=== PATIENT | female | born 1975 | race Two or more races ===

== ENCOUNTER 2016-10-13 11:10 | Emergency (ER) | payer SELFPAY ==
[~2016-10-13] VITALS: Ht 152.4 cm; Wt 62.0 kg
[~2016-10-13 11:10] MED LIST: ACET500C5 PO; COUGH MED; DOCU-144 PO; FAMO-18 PO; [UNRECOGNIZED DRUG - REMARK]
[2016-10-13 11:12] VITALS: Ht 152.4 cm; Wt 62.0 kg
== END 2016-10-13 12:30 | disposition left against medical advice (07) ==
LOC: FTE 11:10
DX: Z53.21 Procedure and treatment not carried out due to patient leaving prior to being seen by health care provider (principal)

== ENCOUNTER 2018-02-06 17:13 | Emergency (ER) | END 2018-02-06 21:35 | disposition home or self-care (01) ==

== ENCOUNTER 2018-09-09 16:57 | Emergency (ER) | payer SELFPAY ==
[~2018-09-09] VITALS: Ht 167.6 cm; Wt 61.2 kg
[~2018-09-09 16:57] MED LIST changes: +ELEC100080 PO; -FAMO-18 PO; +FAMO-96 PO; +METO10TA92 PO; +NAPR-985 PO; +NITR-58 PO
[2018-09-09 17:01] VITALS: BP 133/86; PULSE 113; RESP 20; Ht 167.6 cm; Wt 61.2 kg
== END 2018-09-09 19:19 | disposition left against medical advice (07) ==
LOC: E/R 16:57
DX: Z53.21 Procedure and treatment not carried out due to patient leaving prior to being seen by health care provider (principal)

== ENCOUNTER 2018-12-03 05:57 | Emergency (ER) | payer OTHER ==
[~2018-12-03] VITALS: Ht 154.9 cm; Wt 62.7 kg
[~2018-12-03 05:57] MED LIST changes: +CIPR-193 PO; +ONDA4TAB8 PO; +PHEN-537 PO
[2018-12-03 06:00] VITALS: Ht 154.9 cm; Wt 62.7 kg
[2018-12-03] MEDS ORDERED: ONDANSETRON 4 MG INJ IV STA (06:19)
--- NOTE | 2018-12-03 06:26 | ERD ---
ER Documentation Chief Complaint Chief Complaint DYSURIA; RECENTLY DX'D UTI, ON ATBs X3DAYS; DIZZY DUE TO VOMITING X1DAY HPI Patient is a 43 years old female with no known past medical history presenting to the clinic for chills, emesis, body aches since today morning. Patient reports of being diagnosed with UTI on Thursday by her PCP and was given Macrobid. Patient reports her symptoms worsen as of today morning came to the ED seeking help. Patient admits to 3 episodes of NBNB emesis admits to nausea. Patient reports he still is experiencing urinary urgency, dysuria, suprapubic pain, and low back pain. She admits to taking Macrobid as instructed by her PCP. ROS All systems reviewed and are negative except as per history of present illness. Medications Home Meds Active Scripts Ondansetron Hcl* (Zofran*) 4 Mg Tablet, 4 MG PO Q8H PRN for NAUSEA AND/OR VOMITING, #30 TAB Prov:HARSHIL KYLE PA-C 12/03/18 Phenazopyridine Hcl* (Pyridium*) 100 Mg Tab, 100 MG PO TID PRN for URINARY PAIN, #8 TAB Prov:HARSHIL KYLE PA-C 12/03/18 Ciprofloxacin Hcl* (Ciprofloxacin Hcl*) 250 Mg Tablet, 250 MG PO BID for 5 Days, #10 TAB Prov:HARSHIL KYLE PA-C 12/03/18 Metoclopramide* (Reglan*) 10 Mg Tablet, 10 MG PO Q6 PRN for NAUSEA AND/OR VOMITING, #12 TAB Prov:RAJINDER ANDRADE PA-C 02/06/18 Electrolyte,Oral (Pedialyte) 1,000 Ml Solution, 100 ML PO Q6 PRN for VOMITTING, #1000 ML Prov:RAJINDER ANDRADE PA-C 02/06/18 Naproxen* (Naprosyn*) 500 Mg Tablet, 500 MG PO BID PRN for PAIN AND/OR INFLAMMATION, #30 TAB Prov:RAJINDER ANDRADE PA-C 02/06/18 Nitrofurantoin Monohyd Macrocr* (Macrobid*) 100 Mg Capsr, 100 MG PO BID for 7 Days, CAP Prov:RAJINDER ANDRADE PA-C 02/06/18 Acetaminophen* (Tylophen*) 500 Mg Capsule, 1 CAP PO Q6H PRN for PAIN AND OR ELEVATED TEMP, #20 CAP Prov:RAMYA GARCIA MD 03/15/16 Docusate Sodium* (Colace*) 100 Mg Capsule, 100 MG PO BID, #30 CAP Prov:RAMYA GARCIA MD 03/15/16 Famotidine* (Pepcid*) 20 Mg Tablet, 20 MG PO BID for 14 Days, #30 TAB Prov:RAMYA GARCIA MD 03/15/16 Reported Medications [Cough Med] No Conflict Check 06/03/11 [unk GI med] No Conflict Check 07/09/10 Allergies Allergies: Coded Allergies: Egg (Verified Allergy, Mild, 06/12/12) Chicken Derived (Verified Allergy, 06/12/12) PMhx/Soc History of Surgery: Yes (csection,gallblader,r breast tumor) Anesthesia Reaction: No Hx Neurological Disorder: Yes (migraine) Hx Respiratory Disorders: No Hx Cardiac Disorders: No Hx Psychiatric Problems: No Hx Miscellaneous Medical Probl: No Hx Alcohol Use: No Hx Substance Use: No Hx Tobacco Use: No Smoking Status: Never smoker FmHx Father had diabetes and was from cancer recently. Mother has history of kidney disease. Physical Exam Vitals Vital Signs Date Temp Pulse Resp B/P (MAP) Pulse Ox O2 O2 Flow FiO2 Time Delivery Rate 12/03/18 98.4 113 20 112/84 100 06:00 (93) Physical Exam Const: No acute distress. Patient sitting on exam bed with emesis basin around her arm without emesis. Head: Atraumatic Resp: Clear to auscultation bilaterally Cardio: Regular rate and rhythm, no murmurs Abd: Soft, non tender, non distended. Normal bowel sounds Skin: No petechiae or rashes Back: No midline or flank tenderness. Negative CVAT. Ext: No cyanosis, or edema Psych: Normal Mood and Affect Result Diagram: 12/03/18 0629 12/03/18 0629 Results 24 hrs Laboratory Tests Test 12/03/18 06:29 12/03/18 06:37 White Blood Count 6.5 10^3/ul Red Blood Count 4.82 10^6/ul Hemoglobin 12.3 g/dl Hematocrit 39.5 % Mean Corpuscular Volume 82.0 fl Mean Corpuscular Hemoglobin 25.5 pg Mean Corpuscular Hemoglobin Concent 31.1 g/dl Red Cell Distribution Width 15.4 % Platelet Count 147 10^3/UL Mean Platelet Volume 12.6 fl Immature Granulocytes % 0.500 % Neutrophils % 48.7 % Lymphocytes % 34.4 % Monocytes % 8.3 % Eosinophils % 7.8 % Basophils % 0.3 % Nucleated Red Blood Cells % 0.0 /100WBC Immature Granulocytes # 0.030 10^3/ul Neutrophils # 3.2 10^3/ul Lymphocytes # 2.2 10^3/ul Monocytes # 0.5 10^3/ul Eosinophils # 0.5 10^3/ul Basophils # 0.0 10^3/ul Nucleated Red Blood Cells # 0.0 10^3/ul Sodium Level 142 mmol/L Potassium Level 3.5 mmol/L Chloride Level 108 mmol/L Carbon Dioxide Level 27 mmol/L Anion Gap 7 Blood Urea Nitrogen 10 mg/dl Creatinine 0.63 mg/dl Est Glomerular Filtrat Rate mL/min > 60 mL/min Glucose Level 106 mg/dl Calcium Level 9.2 mg/dl Total Bilirubin 0.2 mg/dl Direct Bilirubin 0.00 mg/dl Indirect Bilirubin 0.2 mg/dl Aspartate Amino Transf (AST/SGOT) 23 IU/L Alanine Aminotransferase (ALT/SGPT) 21 IU/L Alkaline Phosphatase 80 IU/L Total Protein 7.1 g/dl Albumin 4.0 g/dl Globulin 3.10 g/dl Albumin/Globulin Ratio 1.29 POC Beta HCG, Qualitative NEGATIVE Current Medications Medications Dose Sig/Alana Start Time Status Last (Trade) Ordered Route PRN Stop Time Admin Dose Reason Admin Sodium 500 ml @ Q1H ONCE 12/03/18 DC 12/03/18 Chloride 500 mls/hr IV 06:30 06:34 12/03/18 07:29 Ondansetron 4 mg ONCE STAT 12/03/18 DC 12/03/18 HCl (Zofran IV 06:19 06:35 Inj) 12/03/18 06:23 200 mg ONCE ONCE 12/03/18 DC 12/03/18 Phenazopyridi PO 06:30 06:47 ne HCl 12/03/18 06:31 (Pyridium) 50 mg STK-MED 12/03/18 DC Diphenhydrami ONCE .ROUTE 06:28 ne HCl 12/03/18 06:29 (Benadryl) Ceftriaxone 50 ml @ ONCE ONCE 12/03/18 DC 12/03/18 Sodium 100 mls/hr IVPB 07:00 06:47 12/03/18 07:29 Procedures/MDM Patient was seen and evaluated for emesis, body aches, chills. CBC, CMP are grossly unremarkable. Urine is negative. Patient was started on 500 mL normal saline IV, Zofran 4 mg IV, Pyridium 200 mg p.o. in ED significant improvement in symptoms. I have low suspicion for sepsis, nephrolithiasis, need for high doses, pyelonephritis, appendicitis, cholecystitis, colitis. Re- evaluation of patient post treatment is unremarkable. Patient stable and ready for discharge. Patient is most likely exhibiting side effects of Macrobid without complications. Patient will be discharged with Cipro 250 mg p.o. twice daily X 5 days, Pyridium, and Zofran. Follow-up with PCP. Patient was advised to DC Macrobid. Patient will be notified for urine c ulture results. Departure Diagnosis: Primary Impression: UTI (urinary tract infection) Urinary tract infection type: site unspecified Hematuria presence: without hematuria Qualified Codes: N39.0 - Urinary tract infection, site not specified Condition: Stable Patient Instructions: Understanding Urinary Tract Infections (UTIs) Referrals: [facility] Additional Instructions: Patient advised to return to the ED immediately for new or worsening symptoms. Patient advised to follow up with primary care provider in the next 24-48 hours. Patient verbalized understanding and agrees with treatment plan and course of action. If patient has no primary care they may follow up with [facility] [address] [place] [id number] or [facility] [address] [place] [address] or [facility] [address] [place] [address] HARSHIL KYLE PA-C Dec 03, 2018 06:26
[2018-12-03] MEDS ORDERED: DIPHENHYDRAMINE 50 MG INJ ONE (06:28)
[2018-12-03] MEDS ORDERED: PHENAZOPYRIDINE 100 MG TAB PO ONE (06:30)
[2018-12-03] MEDS ORDERED: SOD CHLORIDE 0.9% 500 ML IV ONE (06:30)
[2018-12-03] MEDS ORDERED: CEFTRIAXONE 1 GM/50 ML (PMX) 50 ML IVPB ONE (07:00)
[2018-12-03 08:22] VITALS: BP 116/66; PULSE 82; RESP 19
== END 2018-12-03 08:23 | disposition home or self-care (01) ==
LOC: FTE 05:57
DX: N39.0 Urinary tract infection, site not specified (principal); Z85.3 Personal history of malignant neoplasm of breast
CPT/HCPCS: 80053; 81025; 85025; 87086; 96365; 96375; J0696; J2405; J7040; Z7502; Z7610; J1200